=== PATIENT | female | born 1980 | race Caucasian/White ===

== ENCOUNTER 2017-04-04 06:58 | Inpatient (IN) ==
[2017-04-04] MEDS ORDERED: *HR* Promethazine 25 MG/ML VIAL IVP PRN (09:27)
[2017-04-04] MEDS ORDERED: *HR* HYDROmorphone (PF) 1 MG/ML SYRINGE IVP PRN (09:27)
[2017-04-04] MEDS ORDERED: Naloxone 0.4 MG/ML INJ IVP PRN (09:27)
--- NOTE | 2017-04-04 09:33 | General Surg History&Physical ---
Date of Encounter: 04/04/17 Time of Encounter: 09:31 Assessment and Plan (1) Leukocytosis Current Visit: Yes Status: Acute The assessment and plan as outlined above was discussed with the patient and/or family members who expressed understanding and agreement. All questions were answered. start pt on cipro/flagyl, trend wbc Qualifiers: Leukocytosis type: unspecified Qualified Code(s): D72.829 - Elevated white blood cell count, unspecified (2) RLQ abdominal pain Current Visit: Yes Status: Acute The assessment and plan as outlined above was discussed with the patient and/or family members who expressed understanding and agreement. All questions were answered. prn pain control serial abdominal exams (3) Tachycardia Current Visit: Yes Status: Acute The assessment and plan as outlined above was discussed with the patient and/or family members who expressed understanding and agreement. All questions were answered. monitor, continue pain control and IVF hydration (4) Pelvic mass in female Current Visit: Yes Status: Acute The assessment and plan as outlined above was discussed with the patient and/or family members who expressed understanding and agreement. All questions were answered. discussed with patient what her CT shows and I am not exactly sure what the inflammatory mass/area is from at this time. Will treat her pain and treat her concervatively with ivf hydration, abx, antiemetics and if she feels better tomorrow will order either transvaginal US and or CT with po contrast she expresses understanding (5) Nausea Current Visit: Yes Status: Acute The assessment and plan as outlined above was discussed with the patient and/or family members who expressed understanding and agreement. All questions were answered. prn antiemetics (6) Hydronephrosis Current Visit: Yes Status: Acute The assessment and plan as outlined above was discussed with the patient and/or family members who expressed understanding and agreement. All questions were answered. consulted urology Qualifiers: Hydronephrosis type: other Qualified Code(s): N13.39 - Other hydronephrosis (7) Anxiety Current Visit: Yes Status: Chronic The assessment and plan as outlined above was discussed with the patient and/or family members who expressed understanding and agreement. All questions were answered. ok to continue zoloft home dosing History of Present Illness Chief complaint: abdominal pain HPI: Ms. Curry is a 36 year old female who has a history of ovarian cysts. This past she began with RLQ pain she felt was related to another cyst but the pain was more intense than usual. She saw her line palletizer on wednesday who did a pelvic exam and was planning on seeing her back in 2 weeks and getting imaging in the future as well.The pain severely intensified into RLQ sharp stabbing pain. The pain radiates into her back and across her abdomen to the LLQ as well. She has been having nausea without emesis. No fevers but chills. She complains of dysuria and pain when trying to urinate. Past Med Surg Social Fam HX - Past Medical History Source: patient Medical history: other (ovarian cysts) Psychiatric history: anxiety - Past Surgical History Surgical History: (4 yrs ago x1) - Social History Smoking Status: Never smoker Smokeless Tobacco Status: No Alcohol use: none Drug use: none Current living situation: Home, With Family Medications and Allergies 3 Allergy/AdvReac Type Severity Reaction Status Date / Time No Known Allergies Allergy Unverified 06/14/15 13:54 Review of Systems All systems PM: reviewed and no additional remarkable complaints except as stated All systems PM: A 10-system review of systems was performed and is negative for pertinent findings except as documented above in the HPI. General Surgery Exam - General physical appearance well developed, well nourished, moderate distress, moderate pain - Eyes PERRL, normal ocular movement - ENT normal mucosa, atraumatic, normocephalic - Neck trachea midline - Respiratory normal expansion, clear to auscultation - Cardiovascular Cardiovascular exam: Present: tachycardia, no murmurs/rubs/gallops - Abdomen Abdomen general surgery: Present: bowel sounds present (faint), soft, guarding ( voluntary guarding, no involuntary guarding) Abdominal Tenderness: Present: diffusely (but more so bilateral lower abdomen) - Integumentary Integumentary general surgery: Present: warm and dry, no abnormal pigmentation. Absent: diaphoresis - Neurologic Present: CN 2-12 grossly intact - Musculoskeletal Present: normal posture - Psychiatric Psychiatric general surgery: Present: A&Ox3, speech is normal Results - Labs All other labs normal.vitals from [facility]: 97.5, 118, 16, 108/73 urine negative wbc 13.9 Hb 11.9 plt 366 no bands Na 138, K 3.8, Cl 102, BUN 11, Ca 8.9, Cr 0.85, T bili 0.5 - Imaging CT scan - abdomen: report reviewed, image reviewed CT scan - pelvis: report reviewed, image reviewed
--- NOTE | 2017-04-04 09:34 | Urology - Consult Note ---
Date of Encounter: 04/04/17 Time of Encounter: 09:32 - Assessment and Plan (1) Hydronephrosis Current Visit: Yes Status: Acute Assessment and plan: 36 year old woman with right hydronephrosis secondary to pelvic cystic mass causing external compression. She is not septic at this time. Her pain is mostly in the RLQ and not so much in the flank. We discussed observation, right ureteral stent insertion, and nephrostomy tube. At this point, I would like to see how conservative management improves her pain and to see if the hydronephrosis improves. Repeat CT scan is planned. If the hydronephrosis doesn't improve or renal function worsens, we can proceed with cystoscopy and right ureteral stent insertion. Qualifiers: Hydronephrosis type: other Qualified Code(s): N13.39 - Other hydronephrosis Urology CN:HPI Consult date: 04/04/17 Reason for consult Urology: Hydronephrosis Requesting physician: Jessica Zhou History of present illness: 36-year-old woman presents with a worsening history of right lower quadrant pain. She was seen by her local petroleum blending plant operator who felt that she had worsening ovarian cysts. She was scheduled for a ultrasound to further assess and in the month. Unfortunately, her pain worsened and she came to the emergency department. A CT scan showed evidence of a cystic mass like structure in the right lower quadrant and evidence of inflammation along the terminal ileum and sigmoid colon. CT also showed evidence of right hydroureteronephrosis. There is normal nephrograms bilaterally. Most of her pain is in the right lower quadrant though it does radiate up into the flank. She has a pressure sensation and some pain while voiding. The pain is sharp and stabbing. She has had some chills but denies any fevers. Medications and Allergies 3 Allergy/AdvReac Type Severity Reaction Status Date / Time No Known Allergies Allergy Unverified 06/14/15 13:54 Review of Systems - Constitutional no chills, no fever(s) - EENT Nose, mouth and throat: no dizziness - Cardiovascular no chest pain - Respiratory no dyspnea - Gastrointestinal abdominal pain, no nausea, no vomiting - Genitourinary Genitourinary: difficulty urinating, no flank pain, no hematuria - Musculoskeletal no back pain - Integumentary no erythema, no rash - Neurological no weakness - Psychiatric no suicidal ideation - Hematologic/Lymphatic no easy bleeding - Allergic/Immunologic no wheezing Exam - General physical appearance Present: well developed, well nourished, no distress - Eyes Absent: icteric - ENT Present: normal nares - Neck Present: trachea midline - Respiratory Present: normal respiratory effort - Cardiovascular Cardiovascular exam IM: RRR - Abdomen Abdomen: Present: soft Urology Results - Labs All other labs normal. - Imaging CT scan - pelvis: report reviewed, image reviewed Consult Discharge Plan - Plan Referrals: Britt Salinas [employer] [Primary Care Provider] -
[2017-04-04] MEDS: *HR* HYDROmorphone (PF) 1 MG/ML SYRINGE IVP PRN ×4 (10:03→23:32)
[2017-04-04] MEDS: 0.9 % Sodium Chloride 1,000 ML IVC SCH ×2 (10:08→19:35)
[2017-04-04] MEDS: MetroNIDAZOLE 500 MG/100 ML 500 MG/100 ML BAG IVPB SCH ×3 (10:08→23:33)
[2017-04-04] MEDS: Pantoprazole 40 MG VIAL IVP SCH (10:23)
--- NOTE | 2017-04-04 11:23 | General Surgery Consult Note ---
Date of Encounter: 04/04/17 Time of Encounter: 11:00 History of Present Illness Consult date: 04/04/17 Reason for consult: abdominal pain (RLQ) Past Med Surg Social Fam HX - Past Medical History Medical history: other Psychiatric history: anxiety - Past Surgical History Surgical History: - Social History Smoking Status: Never smoker Smokeless Tobacco Status: No Alcohol use: none Drug use: none Medications and Allergies 3 Allergy/AdvReac Type Severity Reaction Status Date / Time No Known Allergies Allergy Unverified 06/14/15 13:54 Review of Systems All systems PM: A 10-system review of systems was performed and is negative for pertinent findings except as documented above in the HPI. General Surgery Exam Initial Vital Signs Temp Pulse Resp BP Pulse Ox 98.9 F 111 14 109/72 100 04/04/17 09:41 04/04/17 09:41 04/04/17 09:41 04/04/17 09:41 04/04/17 09:41 Exam Initial Vital Signs Temp Pulse Resp BP Pulse Ox 98.9 F 111 14 109/72 100 04/04/17 09:41 04/04/17 09:41 04/04/17 09:41 04/04/17 09:41 04/04/17 09:41 Results - Labs All other labs normal. Consult Discharge Plan - Plan Referrals: Britt Salinas CNP [Primary Care Provider] -
[2017-04-04] MEDS: *HR* Heparin 5,000 UNIT/ML VIAL SQ SCH (19:06)
[2017-04-05] MEDS: *HR* HYDROmorphone (PF) 1 MG/ML SYRINGE IVP PRN ×4 (03:44→22:11)
[2017-04-05 04:58] LABS: Basophils % 0.1 %; Eosinophils % 0.1 %; Hematocrit 31.3 % (35.3-44.9); Immature Granulocytes % 0.7 % (0-4); Lymphocytes # 1.2 K/mcL (0.6-4.6); Mean Corpuscular HGB Conc 31.9 g/dL (31.6-35.5); Mean Corpuscular Hemoglobin 28.9 pg (28.0-33.3); Mean Corpuscular Volume 90.5 fL (83.0-100.0); Mean Platelet Volume 9.4 fL (9.4-12.4); Monocytes # 0.8 K/mcL (0.0-1.3); Monocytes % 5.5 %; Platelet Count 300 K/mcL (140-400); Red Blood Count 3.46 M/mcL (3.82-4.97); Red Cell Distribution Width 13.5 % (11.5-14.5); Segmented Neutrophils % 85.6 %
[2017-04-05] MEDS: 0.9 % Sodium Chloride 1,000 ML IVC SCH ×3 (05:11→16:26)
[2017-04-05] MEDS: *HR* Heparin 5,000 UNIT/ML VIAL SQ SCH ×2 (05:15→16:26)
[2017-04-05 05:16] LABS: BUN/Creatinine Ratio 12 (6-26); Blood Urea Nitrogen 8 mg/dL (7-20); Carbon Dioxide 21 mEq/L (19-29); Chloride 108 mEq/L (98-109); Glucose 83 mg/dL (70-99); Magnesium 1.6 mg/dL (1.6-2.6); Osmolality,Calculated 283 (280-300); Phosphorous 2.4 mg/dL (2.3-4.7); Potassium 3.5 mEq/L (3.5-4.5); Sodium 138 mEq/L (136-145); eGFR For African Americans > 60 (> 60); eGFR For Non-African Americans > 60 (> 60)
--- NOTE | 2017-04-05 07:41 | Urology Progress Note ---
Date of Encounter: 04/05/17 Time of Encounter: 07:39 - Assessment and Plan (1) Hydronephrosis Current Visit: Yes Status: Acute Assessment and plan: 36-year-old woman with right hydronephrosis secondary to external compression. Her creatinine is preserved. I'm going to observe for now. We can place a stent if necessary. With the resolution of the inflammation in the pelvis, her hydronephrosis may improve. Qualifiers: Hydronephrosis type: other Qualified Code(s): N13.39 - Other hydronephrosis Progress Note Narrative: 36-year-old woman with right hydronephrosis and a right pelvic mass. She had a low-grade temperature. White count is elevated today. She says her pain is improved. She is not having much in the right flank pain today. She says she is voiding well. Objective Initial Vital Signs Temp Pulse Resp BP Pulse Ox 98.9 F 111 14 109/72 100 04/04/17 09:41 04/04/17 09:41 04/04/17 09:41 04/04/17 09:41 04/04/17 09:41 - General physical appearance Present: well developed, well nourished, no distress - Respiratory Present: normal respiratory effort - Abdomen Present: soft - Labs 04/05/17 03:24 04/05/17 03:24 Diabetes panel 04/05/17 Range/Units 03:24 Sodium 138 (136-145) mEq/L Potassium 3.5 (3.5-4.5) mEq/L Chloride 108 (98-109) mEq/L Carbon Dioxide 21 (19-29) mEq/L BUN 8 (7-20) mg/dL Creatinine 0.69 (0.57-1.11) mg/dL Glucose 83 (70-99) mg/dL Calcium 8.0 L (8.6-10.8) mg/dL Calcium panel 04/05/17 Range/Units 03:24 Calcium 8.0 L (8.6-10.8) mg/dL Phosphorus 2.4 (2.3-4.7) mg/dL Pituitary panel 04/05/17 Range/Units 03:24 Sodium 138 (136-145) mEq/L Potassium 3.5 (3.5-4.5) mEq/L Chloride 108 (98-109) mEq/L Carbon Dioxide 21 (19-29) mEq/L BUN 8 (7-20) mg/dL Creatinine 0.69 (0.57-1.11) mg/dL Glucose 83 (70-99) mg/dL Calcium 8.0 L (8.6-10.8) mg/dL Adrenal panel 04/05/17 Range/Units 03:24 Sodium 138 (136-145) mEq/L Potassium 3.5 (3.5-4.5) mEq/L Chloride 108 (98-109) mEq/L Carbon Dioxide 21 (19-29) mEq/L BUN 8 (7-20) mg/dL Creatinine 0.69 (0.57-1.11) mg/dL Glucose 83 (70-99) mg/dL Calcium 8.0 L (8.6-10.8) mg/dL Consult Discharge Plan - Plan Referrals: Britt Salinas, ZORAIDA [Primary Care Provider] -
[2017-04-05] MEDS: Ondansetron 4 MG/2 ML VIAL IVP PRN ×2 (08:31→22:08)
[2017-04-05] MEDS: Pantoprazole 40 MG VIAL IVP SCH (08:35)
[2017-04-05] MEDS: MetroNIDAZOLE 500 MG/100 ML 500 MG/100 ML BAG IVPB SCH ×3 (08:36→23:46)
[2017-04-05 11:01] LABS: Bilirubin,Urine Small (Negative); Blood,Urine Moderate (Negative); Clarity,Urine Cloudy (Clear); Color,Urine Dark Yellow (Yellow); Glucose,Urine (UA) Normal (Normal); Ketones,Urine 40 mg/dL (Negative); Leukocyte Esterase,Urine Small (Negative); Nitrite,Urine Negative (Negative); PH,Urine 5.5 pH Units (5.0-8.0); Protein,Urine 30 mg/dL (Neg-Trace); Specific Gravity,Urine > 1.030 (1.010-1.025); Urobilinogen,Urine Normal (Normal)
[2017-04-05 11:04] LABS: Bacteria,Urine Moderate per hpf (None-Few); Hyaline Casts,Urine Few per lpf (None-Few); RBC,Urine 50-100 per hpf (0-3); Squamous Epithelial Cell,Urine Many per lpf (None-Few); WBC,Urine 15-30 per hpf (0-3)
--- NOTE | 2017-04-05 12:18 | General Surgery Progress Note ---
<Zackary Yuan - Last Filed: 04/05/17 12:05> Date of Encounter: 04/05/17 Time of Encounter: 09:00 - Assessment and Plan (1) Leukocytosis Current Visit: Yes Status: Acute WBC count at 15.2 Continue flagyl and cipro Will monitor Qualifiers: Leukocytosis type: unspecified Qualified Code(s): D72.829 - Elevated white blood cell count, unspecified (2) RLQ abdominal pain Current Visit: Yes Status: Acute Patient believes there has been small improvement since starting antibiotics CT scan abd/pelv with po and iv contrast showed inflammatory changes that may represent PID Consulted Research Editor, appreciate any input (3) Tachycardia Current Visit: Yes Status: Acute Pain control Continue IVF will monitor (4) Pelvic mass in female Current Visit: Yes Status: Acute See plan of care above (5) Nausea Current Visit: Yes Status: Acute prn antiemetics (6) Hydronephrosis Current Visit: Yes Status: Acute Urology consulted Qualifiers: Hydronephrosis type: other Qualified Code(s): N13.39 - Other hydronephrosis (7) Anxiety Current Visit: Yes Status: Chronic Continue home medications Subjective Patient reports: no new complaints, still having pain, voiding w/o difficulty, afebrile Objective Vital Signs - Last 8 Hours Temp Pulse Resp BP Pulse Ox 04/05/17 11:36 99.5 F 114 16 97/63 04/05/17 11:08 100.6 F H 117 14 92/60 96 04/05/17 06:35 98.7 F 104 14 94/62 95 Intake and Output 04/04/17 04/05/17 04/05/17 23:59 07:59 15:59 Intake Total 1390 / 1390 1300 / 1300 1000 / 1000 Output Total 275 / 275 400 / 400 0 / 0 Balance 1115 / 1115 900 / 900 1000 / 1000 Intake: IV Fluids 1300 / 1300 1300 / 1300 1000 / 1000 0.9 % Sodium Chloride 1, 1000 / 1000 1000 / 1000 1000 / 1000 000 ML @ 120 mls/hr IVC . Q8H20M [facility] Rx#:[id number] Cipro Premix 400 MG/200 200 / 200 200 / 200 ML 400 mg In 200 ml @ 200 mls/hr IVPB Q12HR [facility] Rx #:[id number] Flagyl Premix 500 MG/100 100 / 100 100 / 100 ML 500 mg In 100 ml @ 100 mls/hr IVPB Q8HR [facility] Rx# :[id number] Oral 90 / 90 0 / 0 Output: Urine 275 / 275 400 / 400 0 / 0 Other: Meal NPO Dinner npo Weight 60.4 kg Blood Glucose* 76 108 86 Patient Weight 04/05/17 23:59 Weight 60.4 kg - General physical appearance well developed, well nourished, no distress - Eyes normal ocular movement - ENT atraumatic, normocephalic - Neck Neck exam: trachea midline - Respiratory normal expansion, normal respiratory effort, clear to auscultation - Cardiovascular Cardiovascular exam: Present: RRR - Abdomen Abdomen: Present: bowel sounds present, soft, tender. Absent: guarding, rebound Abdominal Tenderness: RLQ - Musculoskeletal normal posture - Psychiatric speech is normal - Labs 04/05/17 03:24 04/05/17 03:24 Diabetes panel 04/05/17 Range/Units 03:24 Sodium 138 (136-145) mEq/L Potassium 3.5 (3.5-4.5) mEq/L Chloride 108 (98-109) mEq/L Carbon Dioxide 21 (19-29) mEq/L BUN 8 (7-20) mg/dL Creatinine 0.69 (0.57-1.11) mg/dL Glucose 83 (70-99) mg/dL Calcium 8.0 L (8.6-10.8) mg/dL Calcium panel 04/05/17 Range/Units 03:24 Calcium 8.0 L (8.6-10.8) mg/dL Phosphorus 2.4 (2.3-4.7) mg/dL Pituitary panel 04/05/17 Range/Units 03:24 Sodium 138 (136-145) mEq/L Potassium 3.5 (3.5-4.5) mEq/L Chloride 108 (98-109) mEq/L Carbon Dioxide 21 (19-29) mEq/L BUN 8 (7-20) mg/dL Creatinine 0.69 (0.57-1.11) mg/dL Glucose 83 (70-99) mg/dL Calcium 8.0 L (8.6-10.8) mg/dL Adrenal panel 04/05/17 Range/Units 03:24 Sodium 138 (136-145) mEq/L Potassium 3.5 (3.5-4.5) mEq/L Chloride 108 (98-109) mEq/L Carbon Dioxide 21 (19-29) mEq/L BUN 8 (7-20) mg/dL Creatinine 0.69 (0.57-1.11) mg/dL Glucose 83 (70-99) mg/dL Calcium 8.0 L (8.6-10.8) mg/dL - Imaging CT scan - abdomen: report reviewed, image reviewed CT scan - pelvis: report reviewed, image reviewed Additional Studies: CT/CT abd pelvis w iv and oral IMPRESSION: There are inflammatory changes that appear to be centered in the pelvis, with involvement of both adnexa. Findings may represent PID. What may represent the appendix extends into the right pelvic inflammatory change, and appendicitis is a consideration. Inflammatory thickening of the distal ileum is felt to be secondary to adjacent inflammatory changes in the pelvis. Pelvic ultrasound may be helpful to better evaluate the adnexal structures. D/ / Bryan Boyer MD / Bryan Boyer MD Interpreting Provider: Bryan Boyer MD Consult Discharge Plan - Plan Referrals: Britt Salinas CNP [Primary Care Provider] - <Jessica Zhou - Last Filed: 04/05/17 15:59> Date of Encounter: 04/05/17 - Assessment and Plan (1) Leukocytosis Current Visit: Yes Status: Acute trend wbc, continue Abx Qualifiers: Leukocytosis type: unspecified Qualified Code(s): D72.829 - Elevated white blood cell count, unspecified (2) RLQ abdominal pain Current Visit: Yes Status: Acute pain is only minimally improved with narcotics, continue serial abdominal exams CT abd/pelvis reviewed, consulted gynecology for possible pid continue IVF hydration prn pain control antiemetics npo serial abdominal exams (3) Tachycardia Current Visit: Yes Status: Acute (4) Pelvic mass in female Current Visit: Yes Status: Acute perforated appendicitis versus gynecologic problem, consulted gynecolgy transvaginal US/abdominal US results reviewed and discusse with patient (5) Nausea Current Visit: Yes Status: Acute prn antiemetics (6) Hydronephrosis Current Visit: Yes Status: Acute Qualifiers: Hydronephrosis type: other Qualified Code(s): N13.39 - Other hydronephrosis (7) Anxiety Current Visit: Yes Status: Chronic Subjective Patient reports: no new complaints, still having pain, pain is less (after pain medication), no flatus, no bowel movement, afebrile Objective Vital Signs - Last 8 Hours Temp Pulse Resp BP Pulse Ox 04/05/17 14:35 99.8 F H 112 14 99/65 95 04/05/17 11:36 99.5 F 114 16 97/63 04/05/17 11:08 100.6 F H 117 14 92/60 96 Intake and Output 04/04/17 04/05/17 04/05/17 23:59 07:59 15:59 Intake Total 1390 / 1390 1300 / 1300 1000 / 1000 Output Total 275 / 275 400 / 400 0 / 0 Balance 1115 / 1115 900 / 900 1000 / 1000 Intake: IV Fluids 1300 / 1300 1300 / 1300 1000 / 1000 0.9 % Sodium Chloride 1, 1000 / 1000 1000 / 1000 1000 / 1000 000 ML @ 120 mls/hr IVC . Q8H20M [facility] Rx#:[id number] Cipro Premix 400 MG/200 200 / 200 200 / 200 ML 400 mg In 200 ml @ 200 mls/hr IVPB Q12HR [facility] Rx #:[id number] Flagyl Premix 500 MG/100 100 / 100 100 / 100 ML 500 mg In 100 ml @ 100 mls/hr IVPB Q8HR [facility] Rx# :[id number] Oral 90 / 90 0 / 0 0 / 0 Output: Urine 275 / 275 400 / 400 0 / 0 Other: Meal NPO Dinner NPO Weight 60.4 kg Blood Glucose* 76 108 86 Patient Weight 04/05/17 23:59 Weight 60.4 kg - General physical appearance well developed, well nourished, moderate distress, moderate pain - Eyes normal ocular movement - ENT normal mucosa, normocephalic - Neck Neck exam: trachea midline - Respiratory normal expansion, normal respiratory effort - Cardiovascular Cardiovascular exam: Present: tachycardia - Abdomen Abdomen: Present: bowel sounds present (faint), soft, distended, tender. Absent : guarding, rebound Abdominal Tenderness: diffusely - Integumentary no growths - Neurologic CN 2-12 grossly intact - Musculoskeletal normal posture - Psychiatric oriented to time, oriented to person, oriented to place, speech is normal, memory intact - Labs 04/05/17 03:24 04/05/17 03:24 Short CBC 04/05/17 Range/Units 03:24 WBC 15.2 H (4.3-11.1) K/mcL Hgb 10.0 L (11.5-15.4) g/dL Hct 31.3 L (35.3-44.9) % Plt Count 300 (140-400) K/mcL Neutrophils # 13.0 H (1.6-8.9) K/mcL BMP 04/05/17 Range/Units 03:24 Sodium 138 (136-145) mEq/L Potassium 3.5 (3.5-4.5) mEq/L Chloride 108 (98-109) mEq/L Carbon Dioxide 21 (19-29) mEq/L BUN 8 (7-20) mg/dL Creatinine 0.69 (0.57-1.11) mg/dL Glucose 83 (70-99) mg/dL Calcium 8.0 L (8.6-10.8) mg/dL Urine 04/05/17 Range/Units 10:54 Urine Color Dark Yellow (Yellow) Urine Clarity Cloudy A (Clear) Urine pH 5.5 (5.0-8.0) pH Units Ur Specific [place] > 1.030 H (1.010-1.025) Urine Protein 30 H (Neg-Trace) mg/dL Urine Glucose (UA) Normal (Normal) mg/dL Vital Signs Temp Pulse Resp BP Pulse Ox 04/05/17 14:35 99.8 F H 112 14 99/65 95 04/05/17 11:36 99.5 F 114 16 97/63 04/05/17 11:08 100.6 F H 117 14 92/60 96 04/05/17 06:35 98.7 F 104 14 94/62 95 04/05/17 03:39 100.5 F H 109 18 98/66 97 04/04/17 23:31 99.3 F 110 14 98/62 98 04/04/17 19:48 98.2 F 110 13 95/60 100 Intake and Output 04/04/17 04/05/17 04/05/17 23:59 07:59 15:59 Intake Total 1390 / 1390 1300 / 1300 1000 / 1000 Output Total 275 / 275 400 / 400 0 / 0 Balance 1115 / 1115 900 / 900 1000 / 1000 Intake: IV Fluids 1300 / 1300 1300 / 1300 1000 / 1000 0.9 % Sodium Chloride 1, 1000 / 1000 1000 / 1000 1000 / 1000 000 ML @ 120 mls/hr IVC . Q8H20M [facility] Rx#:[id number] Cipro Premix 400 MG/200 200 / 200 200 / 200 ML 400 mg In 200 ml @ 200 mls/hr IVPB Q12HR [facility] Rx #:[id number] Flagyl Premix 500 MG/100 100 / 100 100 / 100 ML 500 mg In 100 ml @ 100 mls/hr IVPB Q8HR [facility] Rx# :[id number] Oral 90 / 90 0 / 0 0 / 0 Output: Urine 275 / 275 400 / 400 0 / 0 Other: Meal NPO Dinner NPO Weight 60.4 kg Blood Glucose* 76 108 86 Patient Weight 04/05/17 23:59 Weight 60.4 kg - Attending Attestation I examined this patient and my medical decision-making was reviewed with the Resident Physician. I agree with the documented findings, disposition and treatment plan as described except to the extent set forth below.
--- NOTE | 2017-04-05 15:43 | OB/GYN Consult Note ---
Date of Encounter: 04/05/17 Time of Encounter: 15:36 Assessment and Plan (1) Pelvic mass in female Current Visit: Yes Status: Acute Beta HCG less than 1. Will review with Dr. Rivera. We will obtain a urine for GC and chlamydia and discuss possibly starting her on Rocephin and doxycyline (2) Hydronephrosis Current Visit: Yes Status: Acute Qualifiers: Hydronephrosis type: other Qualified Code(s): N13.39 - Other hydronephrosis (3) Leukocytosis Current Visit: Yes Status: Acute Qualifiers: Leukocytosis type: unspecified Qualified Code(s): D72.829 - Elevated white blood cell count, unspecified (4) Nausea Current Visit: Yes Status: Acute (5) RLQ abdominal pain Current Visit: Yes Status: Acute History of Present Illness Consult date: 04/05/17 Requesting physician: Jessica Zhou Reason for consult: pelvic pain, ovarian cyst, pelvic mass Chief complaint: RLQ pain History of present illness: Patient consulted per Surgery team regarding patient RLQ pain. Patient reports having RLQ on Wednesday and saw her regular IRRIGATION WORKER who ordered an ultrasound 04/15. Pain continued and patient went to [facility] in [place]. Patient states that CT scan of abdomen was performed and discussed surgery. States she wanted to transfer care to [place] and was admitted per [place] [facility]. Upon transfer CT of abdomen/pelvis showed inflammation of pelvic area and appendix. Further evaluation was recommended and a pelvic ultrasound was completed. Showed a complex mass lateral to the right ovary measuring 4.7 cm. Patient reports not currently being sexually active with LMP 03/09 but previously trying to conceive. Reports not having a test done at [facility] or her IRRIGATION WORKER office. Rashad Rivera note agree with above: Patient states that she has not been tested for gonorrhea chlamydia through the emergency room or in the primary care physician's office that she has not had any new sexual partners. She is not complaining of any vaginal discharge itching or burning. Patient states she still having significant amount of discomfort is tolerable while on narcotics but once the narcotics wear off she is having severe pain. test performed and the patient was negative for complex mass is not an ectopic. Did inform the patient possibly could be a PID with abscess in that right lower quadrant but also could still be her appendix. We will discuss with general surgery our findings. Past Med Surg Social Fam HX - Past Medical History Medical history: other Psychiatric history: anxiety - Past Surgical History Surgical History: - Social History Smoking Status: Never smoker Smokeless Tobacco Status: No Alcohol use: none Drug use: none Medications and Allergies Cetirizine HCl [Zyrtec] 10 mg PO DAILY PRN 04/04/17 [History] Fluticasone Propionate Nasal [Flonase] 2 spr NS DAILY PRN 04/04/17 [History] Naproxen Sodium [Aleve] 220 mg PO Q12H PRN 04/04/17 [History] Sertraline [Zoloft] 50 mg PO DAILY 04/04/17 [History] 3 Allergy/AdvReac Type Severity Reaction Status Date / Time methylprednisolone AdvReac Redness of Verified 04/04/17 16:27 [From Medrol] Skin Review of Systems All Systems: reviewed and no additional remarkable complaints except as stated Constitutional: as per HPI Gastrointestinal: abdominal pain (RLQ improved since IV pain medication) Exam - Vital Signs Vital signs: Initial Vital Signs Temp Pulse Resp BP Pulse Ox 98.9 F 111 14 109/72 100 04/04/17 09:41 04/04/17 09:41 04/04/17 09:41 04/04/17 09:41 04/04/17 09:41 - Constitutional Constitutional: well developed, well nourished, no acute distress - HEENT HEENT: Normocephaly, Mucus Membranes Moist - Lungs Respiratory exam: CTAB - Cardiovascular Cardiovascular exam: RRR, +S1, +S2 - Abdomen Abdomen: Present: bowel sounds normal, diffuse tenderness (With guarding and rebound tenderness noted in the right lower quadrant) Abdomen detail: right lower quadrant: tenderness - Extremities Extremities exam: normal capillary refill Results Result Diagrams: 04/05/17 03:24 04/05/17 03:24 Abnormal lab results WBC 15.2 K/mcL (4.3-11.1) H 04/05/17 03:24 RBC 3.46 M/mcL (3.82-4.97) L 04/05/17 03:24 Hgb 10.0 g/dL (11.5-15.4) L 04/05/17 03:24 Hct 31.3 % (35.3-44.9) L 04/05/17 03:24 Neutrophils # 13.0 K/mcL (1.6-8.9) H 04/05/17 03:24 Calcium 8.0 mg/dL (8.6-10.8) L 04/05/17 03:24 Urine Clarity Cloudy (Clear) A 04/05/17 10:54 Ur Specific [place] > 1.030 (1.010-1.025) H 04/05/17 10:54 Urine Protein 30 mg/dL (Neg-Trace) H 04/05/17 10:54 Urine Ketones 40 mg/dL (Negative) H 04/05/17 10:54 Urine Blood Moderate (Negative) H 04/05/17 10:54 Urine Bilirubin Small (Negative) H 04/05/17 10:54 Ur Leukocyte Esterase Small (Negative) H 04/05/17 10:54 Urine Microscopic RBC 50-100 per hpf (0-3) H 04/05/17 10:54 Urine Microscopic WBC 15-30 per hpf (0-3) H 04/05/17 10:54 Ur Squamous Epith Cells Many per lpf (None-Few) H 04/05/17 10:54 Urine Bacteria Moderate per hpf (None-Few) H 04/05/17 10:54 Ur Culture Indicated? YES (NO) A 04/05/17 10:54 All other labs normal. Consult Discharge Plan - Plan Referrals: Britt Salinas, NEONATAL NURSE PRACTITIONER [Primary Care Provider] -
[2017-04-05] MEDS: Acetaminophen 325 MG TABLET PO PRN (17:53)
[2017-04-05] MEDS ORDERED: Doxycycline 100 MG in 0.9 % Sodium Chloride Mini Bag 100 ML IVPB SCH (18:00)
[2017-04-05] MEDS: D5% in 0.45% NACL w KCl 20 MEQ/1,000 ML MLS IVC SCH (21:46)
[2017-04-06] MEDS: Acetaminophen 325 MG TABLET PO PRN (03:24)
[2017-04-06] MEDS: *HR* HYDROmorphone (PF) 1 MG/ML SYRINGE IVP PRN ×2 (04:46→10:34)
[2017-04-06] MEDS: D5% in 0.45% NACL w KCl 20 MEQ/1,000 ML MLS IVC SCH ×3 (05:39→23:10)
[2017-04-06] MEDS: *HR* Heparin 5,000 UNIT/ML VIAL SQ SCH ×2 (05:39→20:15)
[2017-04-06 06:33] LABS: Basophils % 0.2 %; Eosinophils % 0.3 %; Hematocrit 29.6 % (35.3-44.9); Hemoglobin 9.6 g/dL (11.5-15.4); Immature Granulocytes % 0.6 % (0-4); Lymphocytes # 0.8 K/mcL (0.6-4.6); Lymphocytes % 6.2 %; Mean Corpuscular HGB Conc 32.4 g/dL (31.6-35.5); Mean Corpuscular Hemoglobin 28.9 pg (28.0-33.3); Mean Corpuscular Volume 89.2 fL (83.0-100.0); Mean Platelet Volume 9.6 fL (9.4-12.4); Monocytes # 0.9 K/mcL (0.0-1.3); Monocytes % 6.8 %; Neutrophils # 10.8 K/mcL (1.6-8.9); Platelet Count 319 K/mcL (140-400); Red Blood Count 3.32 M/mcL (3.82-4.97); Red Cell Distribution Width 13.9 % (11.5-14.5); Segmented Neutrophils % 85.9 %
[2017-04-06 06:48] LABS: BUN/Creatinine Ratio 9 (6-26); Blood Urea Nitrogen 6 mg/dL (7-20); Calcium 8.3 mg/dL (8.6-10.8); Carbon Dioxide 22 mEq/L (19-29); Chloride 103 mEq/L (98-109); Glucose 132 mg/dL (70-99); Magnesium 1.6 mg/dL (1.6-2.6); Osmolality,Calculated 277 (280-300); Potassium 3.5 mEq/L (3.5-4.5); Sodium 134 mEq/L (136-145); eGFR For African Americans > 60 (> 60); eGFR For Non-African Americans > 60 (> 60)
--- NOTE | 2017-04-06 07:14 | Urology Progress Note ---
Date of Encounter: 04/06/17 Time of Encounter: 07:12 - Assessment and Plan (1) Hydronephrosis Current Visit: Yes Status: Acute Assessment and plan: 36-year-old female with right hydroureteronephrosis. Renal function is stable. We will hold off on stent placement this time. If there is concern for operative intervention, I think be reasonable place a stent at that point for ureteral identification. will follow along. Qualifiers: Hydronephrosis type: other Qualified Code(s): N13.39 - Other hydronephrosis Progress Note Narrative: 36-year-old female with a pelvic cystic mass and inflammation resulting in right hydronephrosis. Clinically, she seems stable today. Pain is adequately controlled with pain medication. CT scan and pelvic ultrasound were reviewed. Objective Initial Vital Signs Temp Pulse Resp BP Pulse Ox 98.9 F 111 14 109/72 100 04/04/17 09:41 04/04/17 09:41 04/04/17 09:41 04/04/17 09:41 04/04/17 09:41 - General physical appearance Present: well developed, well nourished, no distress - Respiratory Present: normal respiratory effort - Abdomen Present: soft - Labs 04/06/17 04:29 04/05/17 03:24 Diabetes panel 04/05/17 Range/Units 03:24 Sodium 138 (136-145) mEq/L Potassium 3.5 (3.5-4.5) mEq/L Chloride 108 (98-109) mEq/L Carbon Dioxide 21 (19-29) mEq/L BUN 8 (7-20) mg/dL Creatinine 0.69 (0.57-1.11) mg/dL Glucose 83 (70-99) mg/dL Calcium 8.0 L (8.6-10.8) mg/dL Calcium panel 04/05/17 Range/Units 03:24 Calcium 8.0 L (8.6-10.8) mg/dL Phosphorus 2.4 (2.3-4.7) mg/dL Pituitary panel 04/05/17 Range/Units 03:24 Sodium 138 (136-145) mEq/L Potassium 3.5 (3.5-4.5) mEq/L Chloride 108 (98-109) mEq/L Carbon Dioxide 21 (19-29) mEq/L BUN 8 (7-20) mg/dL Creatinine 0.69 (0.57-1.11) mg/dL Glucose 83 (70-99) mg/dL Calcium 8.0 L (8.6-10.8) mg/dL Adrenal panel 04/05/17 Range/Units 03:24 Sodium 138 (136-145) mEq/L Potassium 3.5 (3.5-4.5) mEq/L Chloride 108 (98-109) mEq/L Carbon Dioxide 21 (19-29) mEq/L BUN 8 (7-20) mg/dL Creatinine 0.69 (0.57-1.11) mg/dL Glucose 83 (70-99) mg/dL Calcium 8.0 L (8.6-10.8) mg/dL Consult Discharge Plan - Plan Referrals: Britt Salinas, ZORAIDA [Primary Care Provider] -
[2017-04-06 07:32] LABS: Phosphorous 0.9 mg/dL (2.3-4.7)
[2017-04-06] MEDS ORDERED: Potassium Phosphate 44 MEQ in 0.9 % Sodium Chloride 250 ML IVPB ONE (07:46)
[2017-04-06] MEDS ORDERED: Sodium Phosphate 30 MMOL in D5% in Water 100 ML IVPB ONE (07:46)
[2017-04-06] MEDS: MetroNIDAZOLE 500 MG/100 ML 500 MG/100 ML BAG IVPB SCH ×2 (08:02→15:54)
[2017-04-06] MEDS: Pantoprazole 40 MG VIAL IVP SCH (08:02)
[2017-04-06] MEDS: Ondansetron 4 MG/2 ML VIAL IVP PRN (08:50)
--- NOTE | 2017-04-06 09:45 | OB/GYN Consult Note ---
Date of Encounter: 04/06/17 Time of Encounter: 09:00 Assessment and Plan (1) Pelvic mass in female Current Visit: Yes Status: Acute Possible tubo-ovarian abscess/PID; continue Rocephin, Doxycycline, Flagyl Monitor for hemodynamic instability/sepsis/SIRS, consider surgical intervention if evidence of such changes (2) RLQ abdominal pain Current Visit: Yes Status: Acute (3) Leukocytosis Current Visit: Yes Status: Acute Trending CBC; 15=>12 Qualifiers: Leukocytosis type: unspecified Qualified Code(s): D72.829 - Elevated white blood cell count, unspecified (4) Hydronephrosis Current Visit: Yes Status: Acute Urology consult specifies R hydronephrosis secondary to external compression due to inflammatory process. Creatinine WNL. Urology with observe and stent if needed Qualifiers: Hydronephrosis type: other Qualified Code(s): N13.39 - Other hydronephrosis History of Present Illness Consult date: 04/05/17 Requesting physician: Jessica Zhou Reason for consult: pelvic pain, pelvic mass Chief complaint: RLQ Pain History of present illness: This is a OB progress note for pt, Zahida Curry, consulted by surgery team . Pt sitting upright in bed, comfortably. Minor nausea after Flagyl. Nursing staff in room providing Zofran. Discussed continued antibiotic course and treatment plan with pt. Pt endorses improvement of pain symptoms while being on antibiotics and pain management. Pt agreeable to antibiotic management/trending of labs with option for surgical exploration if necessary (evidence of sepsis/ rupture/hemodynamic instability). Discussed consult with residential framing carpenter on service. Past Med Surg Social Fam HX - Past Medical History Medical history: other Psychiatric history: anxiety - Past Surgical History Surgical History: - Social History Smoking Status: Never smoker Smokeless Tobacco Status: No Alcohol use: none Drug use: none Medications and Allergies Cetirizine HCl [Zyrtec] 10 mg PO DAILY PRN 04/04/17 [History] Fluticasone Propionate Nasal [Flonase] 2 spr NS DAILY PRN 04/04/17 [History] Naproxen Sodium [Aleve] 220 mg PO Q12H PRN 04/04/17 [History] Sertraline [Zoloft] 50 mg PO DAILY 04/04/17 [History] 3 Allergy/AdvReac Type Severity Reaction Status Date / Time methylprednisolone AdvReac Redness of Verified 04/04/17 16:27 [From Medrol] Skin Review of Systems Constitutional: headache(s), no fever(s), no malaise Cardiovascular: no rapid heart rate Respiratory: no dyspnea Gastrointestinal: abdominal pain (RLQ, improving), nausea (noticed after Flagyl administration) Neurological: no syncope Hematologic/Lymphatic: no lymphadenopathy Exam - Vital Signs Vital signs: Initial Vital Signs Temp Pulse Resp BP Pulse Ox 98.9 F 111 14 109/72 100 04/04/17 09:41 04/04/17 09:41 04/04/17 09:41 04/04/17 09:41 04/04/17 09:41 - Constitutional Constitutional: well developed, well nourished, no acute distress, average body habitus - HEENT HEENT: Normocephaly, Mucus Membranes Moist - Neck Neck exam: full ROM - Lungs Respiratory exam: CTAB - Cardiovascular Cardiovascular exam: +S1, +S2 - Abdomen Abdomen: Present: bowel sounds normal Results Result Diagrams: 04/06/17 04:29 04/06/17 04:29 Abnormal lab results WBC 12.6 K/mcL (4.3-11.1) H 04/06/17 04:29 RBC 3.32 M/mcL (3.82-4.97) L 04/06/17 04:29 Hgb 9.6 g/dL (11.5-15.4) L 04/06/17 04:29 Hct 29.6 % (35.3-44.9) L 04/06/17 04:29 Neutrophils # 10.8 K/mcL (1.6-8.9) H 04/06/17 04:29 Sodium 134 mEq/L (136-145) L 04/06/17 04:29 BUN 6 mg/dL (7-20) L 04/06/17 04:29 Glucose 132 mg/dL (70-99) H 04/06/17 04:29 POC Glucose 157 (58-89) H 04/06/17 06:06 Calculated Osmolality 277 (280-300) L 04/06/17 04:29 Calcium 8.3 mg/dL (8.6-10.8) L 04/06/17 04:29 Phosphorus 0.9 mg/dL (2.3-4.7) L* D 04/06/17 04:29 Urine Clarity Cloudy (Clear) A 04/05/17 10:54 Ur Specific [place] > 1.030 (1.010-1.025) H 04/05/17 10:54 Urine Protein 30 mg/dL (Neg-Trace) H 04/05/17 10:54 Urine Ketones 40 mg/dL (Negative) H 04/05/17 10:54 Urine Blood Moderate (Negative) H 04/05/17 10:54 Urine Bilirubin Small (Negative) H 04/05/17 10:54 Ur Leukocyte Esterase Small (Negative) H 04/05/17 10:54 Urine Microscopic RBC 50-100 per hpf (0-3) H 04/05/17 10:54 Urine Microscopic WBC 15-30 per hpf (0-3) H 04/05/17 10:54 Ur Squamous Epith Cells Many per lpf (None-Few) H 04/05/17 10:54 Urine Bacteria Moderate per hpf (None-Few) H 04/05/17 10:54 Ur Culture Indicated? YES (NO) A 04/05/17 10:54 All other labs normal. Consult Discharge Plan - Plan Referrals: Britt Salinas, INTERNET MARKETING COORDINATOR [Primary Care Provider] -
[2017-04-06] MEDS: Doxycycline 100 MG in 0.9 % Sodium Chloride Mini Bag 100 ML IVPB SCH ×2 (10:34→23:11)
[2017-04-06] MEDS ORDERED: *HR* HYDROmorphone (PF) 1 MG/ML SYRINGE IVP ONE (13:08)
[2017-04-06] MEDS: Ketorolac 30 MG/ML VIAL IVP SCH ×3 (13:28→23:13)
[2017-04-06] MEDS: Acetaminophen IV 1,000 MG/100 ML INFUS..BTL IVPB SCH ×2 (13:34→23:11)
[2017-04-06] MEDS ORDERED: *HR* HYDROmorphone (PF) 1 MG/ML SYRINGE IVP PRN (14:16)
--- NOTE | 2017-04-06 14:41 | General Surgery Progress Note ---
Date of Encounter: 04/06/17 Time of Encounter: 12:20 - Assessment and Plan (1) Leukocytosis Current Visit: Yes Status: Acute trend wbc, continue Abx, is decreasing Qualifiers: Leukocytosis type: unspecified Qualified Code(s): D72.829 - Elevated white blood cell count, unspecified (2) RLQ abdominal pain Current Visit: Yes Status: Acute pain is only minimally improved with narcotics, continue serial abdominal exams , increase narcotics, add iv ofirmev and toradol more concerned regarding PID and tubo-ovarian abscesses than perforated appendicitis, reviewed CT with radiology continue IVF hydration prn pain control antiemetics npo serial abdominal exams (3) Tachycardia Current Visit: Yes Status: Acute continue IVF hydration and pain control (4) Nausea Current Visit: Yes Status: Acute prn antiemetics (5) Hydronephrosis Current Visit: Yes Status: Acute urology following Qualifiers: Hydronephrosis type: other Qualified Code(s): N13.39 - Other hydronephrosis (6) Anxiety Current Visit: Yes Status: Chronic Subjective Patient reports: still having pain, flatus, no bowel movement, afebrile Narrative: complains she doesnt feel she is much better since admission Objective Vital Signs - Last 8 Hours Temp Pulse Resp BP Pulse Ox 04/06/17 11:08 98.7 F 102 15 104/72 96 04/06/17 08:46 98.3 F 104 15 105/73 99 04/06/17 06:39 99/70 Intake and Output 04/05/17 04/06/17 04/06/17 23:59 07:59 15:59 Intake Total 2200 / 2200 1300 / 1300 200 / 200 Output Total 0 / 0 200 / 200 200 / 200 Balance 2200 / 2200 1100 / 1100 0 / 0 Intake: IV Fluids 2200 / 2200 1300 / 1300 200 / 200 0.9 % Sodium Chloride 1, 1600 / 1600 000 ML @ 120 mls/hr IVC . Q8H20M [facility] Rx#:[id number] KCl 20mEq IN D5%-0.45 1000 / 1000 NACL 20 meq In 1,000 ml @ 125 mls/hr IVC .Q8H [facility] Rx#:[id number] Cipro Premix 400 MG/200 200 / 200 200 / 200 ML 400 mg In 200 ml @ 200 mls/hr IVPB Q12HR [facility] Rx #:[id number] Doxycycline 100 MG In 0.9 100 / 100 100 / 100 % Sodium Chloride (Mini- Bag +) 100 ML @ 100 mls/ hr IVPB Q12H [facility] Rx#: [id number] Flagyl Premix 500 MG/100 100 / 100 100 / 100 100 / 100 ML 500 mg In 100 ml @ 100 mls/hr IVPB Q8HR [facility] Rx# :[id number] Rocephin 2,000 MG In 200 / 200 Dextrose 5% (Minibag+) 100 ML 100 ML @ 200 mls/ hr IVPB Q24H [facility] Rx#: [id number] Oral 0 / 0 0 / 0 0 / 0 Output: Urine 0 / 0 200 / 200 200 / 200 Other: Meal Dinner NPO Stool Size Large Stool Consistency formed Stool Characteristics Normal for Patient Stool Color Brown # Voids 1 # Bowel Movements 1 Weight 61.2 kg Blood Glucose* 157 151 Patient Weight 04/06/17 23:59 Weight 61.2 kg - General physical appearance well developed, well nourished, moderate distress, moderate pain - Eyes PERRL, normal ocular movement - ENT normal mucosa, normocephalic - Neck Neck exam: trachea midline - Respiratory normal expansion, normal respiratory effort - Cardiovascular Cardiovascular exam: Present: tachycardia - Abdomen Abdomen: Present: soft, distended (somewhat), tender. Absent: guarding, rebound Abdominal Tenderness: diffusely - Integumentary no rash, no growths - Neurologic CN 2-12 grossly intact - Musculoskeletal normal posture - Psychiatric oriented to time, oriented to person, oriented to place, speech is normal, memory intact - Labs 04/06/17 04:29 04/06/17 04:29 Diabetes panel 04/06/17 Range/Units 04:29 Sodium 134 L (136-145) mEq/L Potassium 3.5 (3.5-4.5) mEq/L Chloride 103 (98-109) mEq/L Carbon Dioxide 22 (19-29) mEq/L BUN 6 L (7-20) mg/dL Creatinine 0.65 (0.57-1.11) mg/dL Glucose 132 H (70-99) mg/dL Calcium 8.3 L (8.6-10.8) mg/dL Calcium panel 04/06/17 Range/Units 04:29 Calcium 8.3 L (8.6-10.8) mg/dL Phosphorus 0.9 L* D (2.3-4.7) mg/dL Pituitary panel 04/06/17 Range/Units 04:29 Sodium 134 L (136-145) mEq/L Potassium 3.5 (3.5-4.5) mEq/L Chloride 103 (98-109) mEq/L Carbon Dioxide 22 (19-29) mEq/L BUN 6 L (7-20) mg/dL Creatinine 0.65 (0.57-1.11) mg/dL Glucose 132 H (70-99) mg/dL Calcium 8.3 L (8.6-10.8) mg/dL Adrenal panel 04/06/17 Range/Units 04:29 Sodium 134 L (136-145) mEq/L Potassium 3.5 (3.5-4.5) mEq/L Chloride 103 (98-109) mEq/L Carbon Dioxide 22 (19-29) mEq/L BUN 6 L (7-20) mg/dL Creatinine 0.65 (0.57-1.11) mg/dL Glucose 132 H (70-99) mg/dL Calcium 8.3 L (8.6-10.8) mg/dL Consult Discharge Plan - Plan Referrals: Britt Salinas, ZORAIDA [Primary Care Provider] -
[2017-04-06] MEDS: *HR* OxyCODONE/APAP 10/325 TABLET PO PRN (22:11)
[2017-04-06] MEDS: Ondansetron ODT 4 MG TAB.RAPDIS SL PRN (22:11)
[2017-04-06] MEDS: Doxycycline 100 MG CAPSULE PO SCH (23:28)
[2017-04-06] MEDS: metroNIDAZOLE 500 MG TABLET PO SCH (23:28)
[2017-04-06] MEDS: CefTRIAXone 1,000 MG VIAL IM SCH (23:39)
[2017-04-07] MEDS: D5% in 0.45% NACL w KCl 20 MEQ/1,000 ML MLS IVC SCH ×3 (03:43→22:27)
[2017-04-07] MEDS: Acetaminophen IV 1,000 MG/100 ML INFUS..BTL IVPB SCH ×3 (04:41→22:26)
[2017-04-07 04:44] LABS: Basophils % 0.1 %; Eosinophils # 0.1 K/mcL (0.0-0.6); Hematocrit 28.1 % (35.3-44.9); Immature Granulocytes % 0.6 % (0-4); Lymphocytes # 1.4 K/mcL (0.6-4.6); Lymphocytes % 14.7 %; Mean Corpuscular Hemoglobin 28.4 pg (28.0-33.3); Mean Corpuscular Volume 88.6 fL (83.0-100.0); Mean Platelet Volume 9.1 fL (9.4-12.4); Monocytes # 0.8 K/mcL (0.0-1.3); Monocytes % 8.3 %; Platelet Count 332 K/mcL (140-400); Red Blood Count 3.17 M/mcL (3.82-4.97); Red Cell Distribution Width 14.1 % (11.5-14.5); Segmented Neutrophils % 75.3 %
[2017-04-07 04:58] LABS: BUN/Creatinine Ratio 9 (6-26); Blood Urea Nitrogen 6 mg/dL (7-20); Calcium 8.4 mg/dL (8.6-10.8); Carbon Dioxide 24 mEq/L (19-29); Chloride 105 mEq/L (98-109); Glucose 85 mg/dL (70-99); Magnesium 1.6 mg/dL (1.6-2.6); Osmolality,Calculated 277 (280-300); Potassium 3.8 mEq/L (3.5-4.5); Sodium 135 mEq/L (136-145); eGFR For African Americans > 60 (> 60); eGFR For Non-African Americans > 60 (> 60)
[2017-04-07] MEDS: Ketorolac 30 MG/ML VIAL IVP SCH ×4 (05:01→23:44)
[2017-04-07 05:03] LABS: Phosphorous 2.1 mg/dL (2.3-4.7)
[2017-04-07] MEDS: *HR* Heparin 5,000 UNIT/ML VIAL SQ SCH ×2 (06:10→17:29)
[2017-04-07] MEDS: *HR* OxyCODONE/APAP 10/325 TABLET PO PRN ×2 (06:18→20:36)
[2017-04-07] MEDS: Ondansetron ODT 4 MG TAB.RAPDIS SL PRN (06:19)
--- NOTE | 2017-04-07 10:11 | General Surgery Progress Note ---
<Zackary Yuan - Last Filed: 04/07/17 11:10> Date of Encounter: 04/07/17 Time of Encounter: 09:00 - Assessment and Plan (1) Leukocytosis Current Visit: Yes Status: Acute WBC count now normal at 9.3 < 12.6 < 15.2 Continue flagyl and cipro Will monitor Qualifiers: Leukocytosis type: unspecified Qualified Code(s): D72.829 - Elevated white blood cell count, unspecified (2) RLQ abdominal pain Current Visit: Yes Status: Acute Patient believes there has been improvement since starting antibiotics There was loss of peripheral IV access yesterday, so powerglide has been place IV abx were held, now restarted Now that pain is localizing more into the flank, we are favoring urologic pain (3) Tachycardia Current Visit: Yes Status: Acute Pain control Continue IVF will monitor (4) Pelvic mass in female Current Visit: Yes Status: Acute See plan of care above (5) Nausea Current Visit: Yes Status: Acute prn antiemetics (6) Hydronephrosis Current Visit: Yes Status: Acute Urology consulted, appreciate input Qualifiers: Hydronephrosis type: other Qualified Code(s): N13.39 - Other hydronephrosis (7) Anxiety Current Visit: Yes Status: Chronic Continue home medications Subjective Patient reports: no new complaints, feels better, still having pain (pain is now located more in the flank than in the RLQ), pain is less, voiding w/o difficulty, flatus, bowel movement Objective Vital Signs - Last 8 Hours Temp Pulse Resp BP Pulse Ox 04/07/17 06:24 98.5 F 99 15 105/73 97 04/07/17 04:27 98.3 F 94 16 105/68 98 Intake and Output 04/06/17 04/07/17 04/07/17 23:59 07:59 15:59 Intake Total 0 / 0 600 / 600 Output Total 200 / 200 400 / 400 Balance -200 / -200 200 / 200 Intake: IV Fluids 0 / 0 KCl 20mEq IN D5%-0.45 0 / 0 NACL 20 meq In 1,000 ml @ 125 mls/hr IVC .Q8H [facility] Rx#:[id number] Flagyl Premix 500 MG/100 0 / 0 ML 500 mg In 100 ml @ 100 mls/hr IVPB Q8HR [facility] Rx# :[id number] Oral 0 / 0 600 / 600 Output: Urine 200 / 200 400 / 400 Other: Meal NPO Weight 61.6 kg Blood Glucose* 115 116 Patient Weight 04/07/17 23:59 Weight 61.6 kg - General physical appearance well developed, well nourished, no distress - Eyes normal ocular movement - ENT atraumatic, normocephalic - Neck Neck exam: trachea midline - Respiratory normal expansion, normal respiratory effort, clear to auscultation - Cardiovascular Cardiovascular exam: Present: RRR - Abdomen Abdomen: Present: bowel sounds present, soft, tender Abdominal Tenderness: RLQ (radiating from right flank) - Musculoskeletal normal posture - Psychiatric speech is normal - Labs 04/07/17 04:19 04/07/17 04:19 Diabetes panel 04/07/17 Range/Units 04:19 Sodium 135 L (136-145) mEq/L Potassium 3.8 (3.5-4.5) mEq/L Chloride 105 (98-109) mEq/L Carbon Dioxide 24 (19-29) mEq/L BUN 6 L (7-20) mg/dL Creatinine 0.64 (0.57-1.11) mg/dL Glucose 85 (70-99) mg/dL Calcium 8.4 L (8.6-10.8) mg/dL Calcium panel 04/07/17 Range/Units 04:19 Calcium 8.4 L (8.6-10.8) mg/dL Phosphorus 2.1 L D (2.3-4.7) mg/dL Pituitary panel 04/07/17 Range/Units 04:19 Sodium 135 L (136-145) mEq/L Potassium 3.8 (3.5-4.5) mEq/L Chloride 105 (98-109) mEq/L Carbon Dioxide 24 (19-29) mEq/L BUN 6 L (7-20) mg/dL Creatinine 0.64 (0.57-1.11) mg/dL Glucose 85 (70-99) mg/dL Calcium 8.4 L (8.6-10.8) mg/dL Adrenal panel 04/07/17 Range/Units 04:19 Sodium 135 L (136-145) mEq/L Potassium 3.8 (3.5-4.5) mEq/L Chloride 105 (98-109) mEq/L Carbon Dioxide 24 (19-29) mEq/L BUN 6 L (7-20) mg/dL Creatinine 0.64 (0.57-1.11) mg/dL Glucose 85 (70-99) mg/dL Calcium 8.4 L (8.6-10.8) mg/dL Consult Discharge Plan - Plan Referrals: Britt Salinas, BUSINESS TEAM LEADER [Primary Care Provider] - <Jessica Zhou - Last Filed: 04/07/17 17:00> Date of Encounter: 04/07/17 Time of Encounter: 12:10 - Assessment and Plan (1) Leukocytosis Current Visit: Yes Status: Acute wbc wnl today continue Abx Qualifiers: Leukocytosis type: unspecified Qualified Code(s): D72.829 - Elevated white blood cell count, unspecified (2) RLQ abdominal pain Current Visit: Yes Status: Acute pain significantly improved, will start clears prn pain control symptoms improved today (3) Tachycardia Current Visit: Yes Status: Acute improved, monitor (4) Nausea Current Visit: Yes Status: Acute (5) Hydronephrosis Current Visit: Yes Status: Acute Qualifiers: Hydronephrosis type: other Qualified Code(s): N13.39 - Other hydronephrosis (6) Anxiety Current Visit: Yes Status: Chronic Subjective Patient reports: feels better, still having pain, pain is less, voiding w/o difficulty, flatus, bowel movement, afebrile Objective Vital Signs - Last 8 Hours Temp Pulse Resp BP Pulse Ox 04/07/17 14:18 98.5 F 91 15 102/70 100 04/07/17 10:14 98.5 F 93 15 104/70 98 Intake and Output 04/07/17 04/07/17 04/07/17 07:59 15:59 23:59 Intake Total 600 / 600 2100 / 2100 Output Total 400 / 400 400 / 400 Balance 200 / 200 1700 / 1700 Intake: IV Fluids 1500 / 1500 KCl 20mEq IN D5%-0.45 1000 / 1000 NACL 20 meq In 1,000 ml @ 125 mls/hr IVC .Q8H [facility] Rx#:[id number] Ofirmev 1,000 mg/100 ml 1 400 / 400 ,000 mg In 100 ml @ 400 mls/hr IVPB Q8H [facility] Rx#: [id number] Flagyl Premix 500 MG/100 100 / 100 ML 500 mg In 100 ml @ 100 mls/hr IVPB Q8HR [facility] Rx# :[id number] Oral 600 / 600 600 / 600 Output: Urine 400 / 400 400 / 400 Other: Meal Clear Weight 61.6 kg Blood Glucose* 116 Patient Weight 04/07/17 23:59 Weight 61.6 kg - General physical appearance well developed, well nourished, no distress - Eyes normal ocular movement - ENT normal mucosa, normocephalic - Respiratory normal expansion, clear to auscultation - Cardiovascular Cardiovascular exam: Present: RRR - Abdomen Abdomen: Present: bowel sounds present, soft, tender (less than yesterday, tender RLQ). Absent: distended, guarding, rebound - Integumentary no growths - Neurologic CN 2-12 grossly intact - Musculoskeletal normal gait, normal posture - Psychiatric oriented to time, oriented to person, oriented to place, speech is normal, memory intact - Labs 04/07/17 04:19 04/07/17 04:19 Diabetes panel 04/07/17 Range/Units 04:19 Sodium 135 L (136-145) mEq/L Potassium 3.8 (3.5-4.5) mEq/L Chloride 105 (98-109) mEq/L Carbon Dioxide 24 (19-29) mEq/L BUN 6 L (7-20) mg/dL Creatinine 0.64 (0.57-1.11) mg/dL Glucose 85 (70-99) mg/dL Calcium 8.4 L (8.6-10.8) mg/dL Calcium panel 04/07/17 Range/Units 04:19 Calcium 8.4 L (8.6-10.8) mg/dL Phosphorus 2.1 L D (2.3-4.7) mg/dL Pituitary panel 04/07/17 Range/Units 04:19 Sodium 135 L (136-145) mEq/L Potassium 3.8 (3.5-4.5) mEq/L Chloride 105 (98-109) mEq/L Carbon Dioxide 24 (19-29) mEq/L BUN 6 L (7-20) mg/dL Creatinine 0.64 (0.57-1.11) mg/dL Glucose 85 (70-99) mg/dL Calcium 8.4 L (8.6-10.8) mg/dL Adrenal panel 04/07/17 Range/Units 04:19 Sodium 135 L (136-145) mEq/L Potassium 3.8 (3.5-4.5) mEq/L Chloride 105 (98-109) mEq/L Carbon Dioxide 24 (19-29) mEq/L BUN 6 L (7-20) mg/dL Creatinine 0.64 (0.57-1.11) mg/dL Glucose 85 (70-99) mg/dL Calcium 8.4 L (8.6-10.8) mg/dL - Attending Attestation I examined this patient and my medical decision-making was reviewed with the Resident Physician. I agree with the documented findings, disposition and treatment plan as described except to the extent set forth below.
[2017-04-07] MEDS: Pantoprazole 40 MG VIAL IVP SCH (10:42)
[2017-04-07] MEDS: MetroNIDAZOLE 500 MG/100 ML 500 MG/100 ML BAG IVPB SCH ×2 (15:26→23:44)
[2017-04-07] MEDS: Ondansetron 4 MG/2 ML VIAL IVP PRN (15:34)
--- NOTE | 2017-04-07 17:30 | Urology Progress Note ---
Date of Encounter: 04/07/17 Time of Encounter: 17:26 - Assessment and Plan (1) Hydronephrosis Current Visit: Yes Status: Acute Assessment and plan: Right hydronephrosis. Pain is controlled with oral medications. 1. Continue observation. If her pain begins to worsen and she requires IV narcotics, then we will place a stent. Qualifiers: Hydronephrosis type: other Qualified Code(s): N13.39 - Other hydronephrosis Progress Note Narrative: 36-year-old female with a pelvic cystic mass and inflammation resulting in right hydronephrosis. She reports taking 2 percocet today and some ketorolac. She isn't requiring any iv narcotic. No fevers. Objective Initial Vital Signs Temp Pulse Resp BP Pulse Ox 98.9 F 111 14 109/72 100 04/04/17 09:41 04/04/17 09:41 04/04/17 09:41 04/04/17 09:41 04/04/17 09:41 - General physical appearance Present: well developed, well nourished, no distress - Respiratory Present: normal respiratory effort - Labs 04/07/17 04:19 04/07/17 04:19 Diabetes panel 04/07/17 Range/Units 04:19 Sodium 135 L (136-145) mEq/L Potassium 3.8 (3.5-4.5) mEq/L Chloride 105 (98-109) mEq/L Carbon Dioxide 24 (19-29) mEq/L BUN 6 L (7-20) mg/dL Creatinine 0.64 (0.57-1.11) mg/dL Glucose 85 (70-99) mg/dL Calcium 8.4 L (8.6-10.8) mg/dL Calcium panel 04/07/17 Range/Units 04:19 Calcium 8.4 L (8.6-10.8) mg/dL Phosphorus 2.1 L D (2.3-4.7) mg/dL Pituitary panel 04/07/17 Range/Units 04:19 Sodium 135 L (136-145) mEq/L Potassium 3.8 (3.5-4.5) mEq/L Chloride 105 (98-109) mEq/L Carbon Dioxide 24 (19-29) mEq/L BUN 6 L (7-20) mg/dL Creatinine 0.64 (0.57-1.11) mg/dL Glucose 85 (70-99) mg/dL Calcium 8.4 L (8.6-10.8) mg/dL Adrenal panel 04/07/17 Range/Units 04:19 Sodium 135 L (136-145) mEq/L Potassium 3.8 (3.5-4.5) mEq/L Chloride 105 (98-109) mEq/L Carbon Dioxide 24 (19-29) mEq/L BUN 6 L (7-20) mg/dL Creatinine 0.64 (0.57-1.11) mg/dL Glucose 85 (70-99) mg/dL Calcium 8.4 L (8.6-10.8) mg/dL Consult Discharge Plan - Plan Referrals: Britt Salinas, ZORAIDA [Primary Care Provider] -
[2017-04-07] MEDS: Doxycycline 100 MG in 0.9 % Sodium Chloride Mini Bag 100 ML IVPB SCH (20:37)
[2017-04-08] MEDS: metroNIDAZOLE 500 MG TABLET PO SCH (05:16)
[2017-04-08] MEDS: Doxycycline 100 MG CAPSULE PO SCH (05:16)
[2017-04-08] MEDS: Acetaminophen IV 1,000 MG/100 ML INFUS..BTL IVPB SCH ×4 (05:16→22:33)
[2017-04-08] MEDS: CefTRIAXone 1,000 MG VIAL IM SCH (05:16)
[2017-04-08] MEDS: Ketorolac 30 MG/ML VIAL IVP SCH ×3 (05:42→17:39)
[2017-04-08] MEDS: *HR* Heparin 5,000 UNIT/ML VIAL SQ SCH ×2 (05:42→17:39)
[2017-04-08] MEDS: Doxycycline 100 MG in 0.9 % Sodium Chloride Mini Bag 100 ML IVPB SCH ×2 (07:40→21:28)
[2017-04-08] MEDS: MetroNIDAZOLE 500 MG/100 ML 500 MG/100 ML BAG IVPB SCH ×2 (07:41→15:38)
[2017-04-08] MEDS: Pantoprazole 40 MG VIAL IVP SCH (07:41)
[2017-04-08] MEDS: D5% in 0.45% NACL w KCl 20 MEQ/1,000 ML MLS IVC SCH ×2 (07:48→19:45)
[2017-04-08] MEDS: Ondansetron 4 MG/2 ML VIAL IVP PRN (09:47)
[2017-04-08] MEDS ORDERED: *HR* OxyCODONE/APAP 10/325 TABLET PO PRN (12:13)
[2017-04-08] MEDS ORDERED: Ondansetron 4 MG/2 ML VIAL IVP PRN (12:15)
--- NOTE | 2017-04-08 12:20 | General Surgery Progress Note ---
Date of Encounter: 04/08/17 Time of Encounter: 12:00 - Assessment and Plan (1) RLQ abdominal pain Current Visit: Yes Status: Acute States improving RLQ discomfort and some improvement in right flank pain. Involuntary guarding noted yesterday has resolved. She states discomfort is controlled on current PO regimen. There is no rebound tenderness. McBurney sign is negative. Rovsing sign is negative. She does report some nausea that is controlled with anti-emetics; will continue and increase frequency of Zofran to every 4 hours DC IV fluids Advanced diet to full liquids, advanced diet is tolerated. Ambulate in the hallway at least 3 times daily and up as tolerated. Unlikely previous abdominal discomfort acute appendicitis but more likely PID and hydronephrosis Urology and PHOTOGRAPHIC SPOTTER are following; D/c planning in the next 24-48 hours pending clinical course and urology/PHOTOGRAPHIC SPOTTER recommendations. Appreciate their input. (2) Leukocytosis Current Visit: Yes Status: Acute Normalizing. Continue IV antibiotics.Will continue to follow along Qualifiers: Leukocytosis type: unspecified Qualified Code(s): D72.829 - Elevated white blood cell count, unspecified (3) Tachycardia Current Visit: Yes Status: Acute Heart rates have consistently been less than 100. She denies chest pain or shortness of breath. Continue to follow. (4) Pelvic mass in female Current Visit: Yes Status: Acute Likely PID in nature. ABX course per PHOTOGRAPHIC SPOTTER recommendations; otherwise See plan above. (5) Nausea Current Visit: Yes Status: Acute See plan above (6) Hydronephrosis Current Visit: Yes Status: Acute See urology notes and plan above Qualifiers: Hydronephrosis type: other Qualified Code(s): N13.39 - Other hydronephrosis Subjective Patient reports: no new complaints, feels better, still having pain, pain is less, tolerating liquids well, voiding w/o difficulty, flatus, bowel movement Objective Vital Signs - Last 8 Hours Temp Pulse Resp BP Pulse Ox 04/08/17 12:04 98.7 F 93 18 101/69 99 04/08/17 06:39 98.0 F 99 16 106/73 93 Intake and Output 04/07/17 04/08/17 04/08/17 23:59 07:59 15:59 Intake Total 1820 / 1820 1300 / 1300 0 / 0 Output Total 1450 / 1450 400 / 400 900 / 900 Balance 370 / 370 900 / 900 -900 / -900 Intake: IV Fluids 1600 / 1600 1200 / 1200 KCl 20mEq IN D5%-0.45 1000 / 1000 1000 / 1000 NACL 20 meq In 1,000 ml @ 125 mls/hr IVC .Q8H TACHO Rx#:[id number] Ofirmev 1,000 mg/100 ml 1 100 / 100 100 / 100 ,000 mg In 100 ml @ 400 mls/hr IVPB Q8H TACHO Rx#: [id number] Cipro Premix 400 MG/200 200 / 200 ML 400 mg In 200 ml @ 200 mls/hr IVPB Q12HR [facility]O Rx #:[id number] Doxycycline 100 MG In 0.9 100 / 100 % Sodium Chloride (Mini- Bag +) 100 ML @ 100 mls/ hr IVPB Q12H TACHO Rx#: [id number] Flagyl Premix 500 MG/100 100 / 100 100 / 100 ML 500 mg In 100 ml @ 100 mls/hr IVPB Q8HR [facility]O Rx# :[id number] Rocephin 2,000 MG In 100 / 100 Dextrose 5% (Minibag+) 100 ML 100 ML @ 200 mls/ hr IVPB Q24H TACHO Rx#: [id number] Oral 220 / 220 100 / 100 0 / 0 Output: Urine 1450 / 1450 400 / 400 900 / 900 Other: Stool Size Small Stool Consistency loose Stool Color Brown # Bowel Movements 1 Weight 66 kg Patient Weight 04/08/17 23:59 Weight 66 kg - General physical appearance no distress, moderate pain - Eyes normal ocular movement - ENT normal nares, normal mucosa, atraumatic, normocephalic - Neck Neck exam: no masses, trachea midline - Respiratory normal expansion, normal respiratory effort, clear to auscultation - Cardiovascular Cardiovascular exam: Present: tachycardia, no murmurs/rubs/gallops - Abdomen Abdomen: Present: bowel sounds present, soft, tender. Absent: guarding ( Guarding noted yesterday has resolved) - Genitourinary other (+CVA tenderness on right) - Integumentary no rash - Neurologic CN 2-12 grossly intact - Musculoskeletal normal gait, normal posture - Psychiatric oriented to time, oriented to person, oriented to place, memory intact - Labs 04/08/17 12:26 04/08/17 12:26 Consult Discharge Plan - Plan Referrals: Britt Salinas, ZORAIDA [Primary Care Provider] -
[2017-04-08 12:43] LABS: Basophils % 0.1 %; Eosinophils # 0.1 K/mcL (0.0-0.6); Eosinophils % 1.2 %; Hematocrit 28.4 % (35.3-44.9); Hemoglobin 9.1 g/dL (11.5-15.4); Immature Granulocytes % 0.9 % (0-4); Lymphocytes % 12.7 %; Mean Corpuscular Hemoglobin 28.3 pg (28.0-33.3); Mean Corpuscular Volume 88.5 fL (83.0-100.0); Mean Platelet Volume 8.8 fL (9.4-12.4); Monocytes # 0.5 K/mcL (0.0-1.3); Monocytes % 6.7 %; Neutrophils # 6.3 K/mcL (1.6-8.9); Platelet Count 385 K/mcL (140-400); Red Blood Count 3.21 M/mcL (3.82-4.97); Red Cell Distribution Width 14.3 % (11.5-14.5); Segmented Neutrophils % 78.4 %
[2017-04-08 12:55] LABS: BUN/Creatinine Ratio 5 (6-26); Calcium 8.3 mg/dL (8.6-10.8); Carbon Dioxide 25 mEq/L (19-29); Chloride 109 mEq/L (98-109); Glucose 111 mg/dL (70-99); Osmolality,Calculated 285 (280-300); Potassium 3.8 mEq/L (3.5-4.5); Sodium 139 mEq/L (136-145); eGFR For African Americans > 60 (> 60); eGFR For Non-African Americans > 60 (> 60)
[2017-04-08 12:58] LABS: Blood Urea Nitrogen 3 mg/dL (7-20)
--- NOTE | 2017-04-08 18:21 | Discharge Summary ---
<Luan Dumont - Last Filed: 04/09/17 06:18> Date of Encounter: 04/09/17 Time of Encounter: 18:45 - Discharge Diagnosis (1) Leukocytosis Status: Acute Comments: resolved Qualifiers: Leukocytosis type: unspecified Qualified Code(s): D72.829 - Elevated white blood cell count, unspecified (2) RLQ abdominal pain Status: Acute (3) Tachycardia Status: Acute (4) Pelvic mass in female Status: Acute (5) Nausea Status: Acute (6) Hydronephrosis Status: Acute Qualifiers: Hydronephrosis type: other Qualified Code(s): N13.39 - Other hydronephrosis - Discharge Medications Prescriptions: Doxycycline 100 mg PO BID #30 capsule metroNIDAZOLE [Flagyl] 500 mg PO BID #30 tablet Home Medications: Cetirizine HCl [Zyrtec] 10 mg PO DAILY PRN 04/04/17 [History] Fluticasone Propionate Nasal [Flonase] 2 spr NS DAILY PRN 04/04/17 [History] Naproxen Sodium [Aleve] 220 mg PO Q12H PRN 04/04/17 [History] Sertraline [Zoloft] 50 mg PO DAILY 04/04/17 [History] Doxycycline 100 mg PO BID #30 capsule 04/08/17 [Rx] metroNIDAZOLE [Flagyl] 500 mg PO BID #30 tablet 04/08/17 [Rx] Allergies/Adverse Reactions: 3 Allergy/AdvReac Type Severity Reaction Status Date / Time methylprednisolone AdvReac Redness of Verified 04/04/17 16:27 [From Medrol] Skin General Surgery Exam Initial Vital Signs Temp Pulse Resp BP Pulse Ox 98.9 F 111 14 109/72 100 04/04/17 09:41 04/04/17 09:41 04/04/17 09:41 04/04/17 09:41 04/04/17 09:41 - General physical appearance well developed, well nourished, no distress - Eyes normal ocular movement - ENT atraumatic, normocephalic, CN 2-12 grossly intact - Neck trachea midline - Respiratory normal expansion, clear to auscultation - Cardiovascular Cardiovascular exam: Present: RRR, no murmurs/rubs/gallops - Abdomen Abdomen general surgery: Present: bowel sounds present, soft, non tender - Integumentary Integumentary general surgery: Present: warm and dry, no abnormal pigmentation - Neurologic Present: CN 2-12 grossly intact, normal coordination, normal sensation - Musculoskeletal Present: normal gait - Psychiatric Psychiatric general surgery: Present: speech is normal, memory intact Date of admission: 04/05/17 13:27 Primary care physician: Britt Salinas CNP Consults: 04/04/17 09:30 Consult to Urology [CONS] Routine Consulting Provider: Urology Melvina Reason for Consult: right hydronephrosis, back pain Time Notified: 09:30 Call Completed: Yes 04/05/17 12:13 Consult to BUILDING CUSTODIAL SUPERVISOR [CONS] Routine Consulting Provider: SEED BUYER Melvina Reason for Consult: Pelvic inflammatory changes on CT RLQ pain Possible PID Call Completed: Yes Discharging clinician: Jessica Zhou Anticipated date of discharge: 04/08/17 - Patient Status Disposition: Home, Self-Care Condition: Good - Discharge Instructions Follow Up With: Britt Salinas CNP [Primary Care Provider] - Mag Sainz MD [Partnered Physician] - Additional Instructions: Follow up with crew trainer regarding Transvaginal U/S results. Take antibiotics as prescribed. Contact emergency room or 911 if you become too dizzy or weak to stand up, have severe/sharp/sudden abdominal pain, or if you have a fever. Contact your healthcare provider if you experience any of the following: -your periods become more painful than usual -have bleeding from your vagina that is not your period -have constant abdominal pain -your abdomen is swollen -you have feelings of fullness, pressure, or discomfort in your abdomen -you have trouble urinating or emptying your bladder completely -pain during sex -losing weight without trying - Diet and Activity Activity: increase activity as tolerated, return to work once cleared by your PCP/specialist Diet: other - Hospital Course Hospital course: Ms. Curry is a 36 year old female with a history of ovarian cysts who presented with stabbing RLQ pain that started last . She went to her crew trainer on Wednesday, who completed a pelvic exam and scheduled her for imaging in 2 weeks. However, her RLQ pain worsened and she presented to the ED. The pain radiates val her back and across her abdomen to the LLQ. She admits nausea, chills, dysuria but denies vomiting or fever. Abdominal CT showed inflammatory changes centered in the pelvis with bilateral adnexa involvement, possible appendicitis. Transvaginal ultrasound indicates right mass suggesting possible PID and complex mass lateral to the right ovary measuring 4.7cm. Patient reported LMP 7/25 and currently not sexually active. Search Engine Optimization Consultant consulted and ruled out ectopic . Cipro and Flagyl started with symptomatic improvement. Leukocytosis resolved. Patient has appointment with Dr. Sainz for Ultrasound f/u and adnexal mass. - Time Spent with Patient Total time spent providing and/or coordinating discharge services: Labs on day of discharge: Labs from last 24 hours 04/08/17 04/08/17 12:26 12:26 WBC 8.1 RBC 3.21 L Hgb 9.1 L Hct 28.4 L MCV 88.5 MCH 28.3 MCHC 32.0 RDW 14.3 Plt Count 385 MPV 8.8 L Immature Gran % 0.9 Seg Neutrophils % 78.4 Lymphocytes % 12.7 Monocytes % 6.7 Eosinophils % 1.2 Basophils % 0.1 Neutrophils # 6.3 Lymphocytes # 1.0 Monocytes # 0.5 Eosinophils # 0.1 Basophils # 0.0 Sodium 139 Potassium 3.8 Chloride 109 Carbon Dioxide 25 BUN 3 L Creatinine 0.63 Est GFR ( Amer) > 60 Est GFR (Non-Af Amer) > 60 BUN/Creatinine Ratio 5 L Glucose 111 H Calculated Osmolality 285 Calcium 8.3 L - Impressions ITS Impressions Abdomen/Pelvis CT 04/05/17 09:30 IMPRESSION: There are inflammatory changes that appear to be centered in the pelvis, with involvement of both adnexa. Findings may represent PID. What may represent the appendix extends into the right pelvic inflammatory change, and appendicitis is a consideration. Inflammatory thickening of the distal ileum is felt to be secondary to adjacent inflammatory changes in the pelvis. Pelvic ultrasound may be helpful to better evaluate the adnexal structures. D/ / Bryan Boyer MD / Bryan Boyer MD Interpreting Provider: Bryan Boyer MD Abdomen Ultrasound 04/05/17 11:56 IMPRESSION: 1. The ovaries bilaterally are unremarkable with dominant follicular cyst on theright measuring 1.4 cm maximally. Normal Doppler flow. 2. Complex mass in the right hemipelvis measuring 4.7 cm maximally likely correlating to the abnormality on CT. The findings again suggest possible PID and pyosalpinx. 3. The appendix is not clearly visualized. D/ / 04/05/2017 13:52:53 Gino Suazo MD / janie Interpreting Provider: Gino Suazo MD Abdomen/Pelvis/Transvag US 04/05/17 11:56 IMPRESSION: 1. The ovaries bilaterally are unremarkable with dominant follicular cyst on theright measuring 1.4 cm maximally. Normal Doppler flow. 2. Complex mass in the right hemipelvis measuring 4.7 cm maximally likely correlating to the abnormality on CT. The findings again suggest possible PID and pyosalpinx. 3. The appendix is not clearly visualized. D/ : / 04/05/2017 13:52:53 Gino Suazo MD / janie Interpreting Provider: Gino Suazo MD <Jessica Zhou - Last Filed: 04/09/17 09:14> Date of Encounter: 04/09/17 - Discharge Diagnosis (1) Leukocytosis Priority: Secondary Status: Acute Qualifiers: Leukocytosis type: unspecified Qualified Code(s): D72.829 - Elevated white blood cell count, unspecified (2) RLQ abdominal pain Priority: Secondary Status: Acute (3) Tachycardia Priority: Secondary Status: Acute (4) Nausea Priority: Secondary Status: Acute (5) Hydronephrosis Priority: Secondary Status: Acute Qualifiers: Hydronephrosis type: other Qualified Code(s): N13.39 - Other hydronephrosis (6) Anxiety Priority: Secondary Status: Chronic (7) PID (acute pelvic inflammatory disease) Priority: Primary Status: Acute General Surgery Exam Initial Vital Signs Temp Pulse Resp BP Pulse Ox 98.9 F 111 14 109/72 100 04/04/17 09:41 04/04/17 09:41 04/04/17 09:41 04/04/17 09:41 04/04/17 09:41 Date of admission: 04/05/17 13:27 Primary care physician: Britt Salinas CNP Consults: 04/04/17 09:30 Consult to Urology [CONS] Routine Consulting Provider: Urology Melvina Reason for Consult: right hydronephrosis, back pain Time Notified: 09:30 Call Completed: Yes 04/05/17 12:13 Consult to BUILDING CUSTODIAL SUPERVISOR [CONS] Routine Consulting Provider: SEED BUYER Melvina Reason for Consult: Pelvic inflammatory changes on CT RLQ pain Possible PID Call Completed: Yes - Patient Status Overall status at discharge: patient is progressing back to baseline - Hospital Course Hospital course: Ms. Curry is a 36 year old female who was admitted and treated for PID - Time Spent with Patient Total time spent providing and/or coordinating discharge services: Labs on day of discharge: Labs from last 24 hours 04/09/17 04/09/17 04/08/17 04:09 04:09 12:26 WBC 9.0 RBC 3.07 L Hgb 8.9 L Hct 27.2 L MCV 88.6 MCH 29.0 MCHC 32.7 RDW 14.6 H Plt Count 368 MPV 8.8 L Immature Gran % 0.8 Seg Neutrophils % 71.9 Lymphocytes % 17.7 Monocytes % 7.7 Eosinophils % 1.7 Basophils % 0.2 Neutrophils # 6.5 Lymphocytes # 1.6 Monocytes # 0.7 Eosinophils # 0.2 Basophils # 0.0 Sodium 141 139 Potassium 3.7 3.8 Chloride 109 109 Carbon Dioxide 23 25 BUN 4 L 3 L Creatinine 0.65 0.63 Est GFR ( Amer) > 60 > 60 Est GFR (Non-Af Amer) > 60 > 60 BUN/Creatinine Ratio 6 5 L Glucose 91 111 H Calculated Osmolality 288 285 Calcium 8.3 L 8.3 L 04/08/17 12:26 WBC 8.1 RBC 3.21 L Hgb 9.1 L Hct 28.4 L MCV 88.5 MCH 28.3 MCHC 32.0 RDW 14.3 Plt Count 385 MPV 8.8 L Immature Gran % 0.9 Seg Neutrophils % 78.4 Lymphocytes % 12.7 Monocytes % 6.7 Eosinophils % 1.2 Basophils % 0.1 Neutrophils # 6.3 Lymphocytes # 1.0 Monocytes # 0.5 Eosinophils # 0.1 Basophils # 0.0 Sodium Potassium Chloride Carbon Dioxide BUN Creatinine Est GFR ( Amer) Est GFR (Non-Af Amer) BUN/Creatinine Ratio Glucose Calculated Osmolality Calcium - Impressions ITS Impressions Abdomen/Pelvis CT 04/05/17 09:30 IMPRESSION: There are inflammatory changes that appear to be centered in the pelvis, with involvement of both adnexa. Findings may represent PID. What may represent the appendix extends into the right pelvic inflammatory change, and appendicitis is a consideration. Inflammatory thickening of the distal ileum is felt to be secondary to adjacent inflammatory changes in the pelvis. Pelvic ultrasound may be helpful to better evaluate the adnexal structures. D/ / Bryan Boyer MD / Bryan Boyer MD Interpreting Provider: Bryan Boyer MD Abdomen Ultrasound 04/05/17 11:56 IMPRESSION: 1. The ovaries bilaterally are unremarkable with dominant follicular cyst on theright measuring 1.4 cm maximally. Normal Doppler flow. 2. Complex mass in the right hemipelvis measuring 4.7 cm maximally likely correlating to the abnormality on CT. The findings again suggest possible PID and pyosalpinx. 3. The appendix is not clearly visualized. D/ : / 04/05/2017 13:52:53 Gino Suazo MD / janie Interpreting Provider: Gino Suazo MD Abdomen/Pelvis/Transvag US 04/05/17 11:56
[2017-04-09] MEDS: Ondansetron ODT 4 MG TAB.RAPDIS SL PRN (00:04)
[2017-04-09] MEDS: Ketorolac 30 MG/ML VIAL IVP SCH ×2 (00:05→06:00)
[2017-04-09] MEDS: MetroNIDAZOLE 500 MG/100 ML 500 MG/100 ML BAG IVPB SCH ×2 (00:05→09:35)
[2017-04-09 04:29] LABS: Basophils % 0.2 %; Eosinophils # 0.2 K/mcL (0.0-0.6); Eosinophils % 1.7 %; Hematocrit 27.2 % (35.3-44.9); Hemoglobin 8.9 g/dL (11.5-15.4); Immature Granulocytes % 0.8 % (0-4); Lymphocytes # 1.6 K/mcL (0.6-4.6); Lymphocytes % 17.7 %; Mean Corpuscular HGB Conc 32.7 g/dL (31.6-35.5); Mean Corpuscular Volume 88.6 fL (83.0-100.0); Mean Platelet Volume 8.8 fL (9.4-12.4); Monocytes # 0.7 K/mcL (0.0-1.3); Monocytes % 7.7 %; Neutrophils # 6.5 K/mcL (1.6-8.9); Platelet Count 368 K/mcL (140-400); Red Blood Count 3.07 M/mcL (3.82-4.97); Red Cell Distribution Width 14.6 % (11.5-14.5); Segmented Neutrophils % 71.9 %
[2017-04-09 04:42] LABS: BUN/Creatinine Ratio 6 (6-26); Calcium 8.3 mg/dL (8.6-10.8); Carbon Dioxide 23 mEq/L (19-29); Chloride 109 mEq/L (98-109); Glucose 91 mg/dL (70-99); Osmolality,Calculated 288 (280-300); Potassium 3.7 mEq/L (3.5-4.5); Sodium 141 mEq/L (136-145); eGFR For African Americans > 60 (> 60); eGFR For Non-African Americans > 60 (> 60)
[2017-04-09 04:44] LABS: Blood Urea Nitrogen 4 mg/dL (7-20)
[2017-04-09] MEDS: Acetaminophen IV 1,000 MG/100 ML INFUS..BTL IVPB SCH (06:00)
[2017-04-09] MEDS: *HR* Heparin 5,000 UNIT/ML VIAL SQ SCH (06:01)
[2017-04-09 06:50] VITALS: BP 154/71
[2017-04-09] MEDS: Pantoprazole 40 MG VIAL IVP SCH (09:36)
[2017-04-09] MEDS: Doxycycline 100 MG in 0.9 % Sodium Chloride Mini Bag 100 ML IVPB SCH (09:36)
== END 2017-04-09 09:42 | disposition home or self-care (01) | DRG 392 ==
LOC: 3ANU
PROVIDERS: ADMIT Surgery; ATTEND Surgery